=== PATIENT | female | born 1985 | race American Indian/Alaskan Native ===

== ENCOUNTER 2017-07-23 19:25 | Emergency (ER) | payer BC ==
[2017-07-23 19:25] VITALS: BMI 25.0
--- NOTE | 2017-07-23 19:42 | ED PDOC ---
Arrival/HPI - General Historian: Patient - General Time Seen by Provider: 07/23/17 19:39 - History of Present Illness Narrative History of Present Illness (Text): 07/23/17 19:39 32yo female with no PMhx who present with complaint of left sided upper tothache x 2hours. States she saw a Dentist before, after the tooth cracked and he wants to do root canal, but then the pain started tonight. States pain is thorbbing, 10/10. she did not take any medication for the pain. Denies fever, trauma, any other complaint. (u,Happiness A) Past Medical History - Provider Review Nursing Documentation Reviewed: Yes - Psychiatric Hx Depression: No Hx Emotional Abuse: No Hx Physical Abuse: No Hx Substance Use: No - Suicidal Assessment Feels Threatened In Home Enviroment: No Family/Social History - Physician Review Nursing Documentation Reviewed: Yes Family/Social History: Unknown Family HX Hx Alcohol Use: No Hx Substance Use: No Hx Substance Use Treatment: No Allergies/Home Meds Allergies/Adverse Reactions: Allergies No Known Allergies Allergy (Verified 01/21/12 09:34) Review of Systems - Physician Review All systems were reviewed & negative as marked: Yes - Review of Systems Constitutional: Normal Eyes: Normal ENT: Other (toothache) Respiratory: Normal Cardiovascular: Normal Gastrointestinal: Normal Genitourinary Female: Normal Musculoskeletal: Normal Skin: Normal Neurological: Normal Endocrine: Normal Hemo/Lymphatic: Normal Psychiatric: Normal Physical Exam Vital Signs Reviewed: Yes Temperature: Afebrile Blood Pressure: Normal Pulse: Regular Respiratory Rate: Normal Appearance: Positive for: Well-Appearing, Non-Toxic, Comfortable Pain Distress: None Mental Status: Positive for: Alert and Oriented X 3 - Systems Exam Head: Present: Atraumatic, Normocephalic Pupils: Present: PERRL Extroacular Muscles: Present: EOMI Conjunctiva: Present: Normal Mouth: Present: Moist Mucous Membranes. No: Normal Teeth (Left upper premolar cracked with mild gingival swelling) Neck: Present: Normal Range of Motion Respiratory/Chest: Present: Clear to Auscultation, Good Air Exchange. No: Respiratory Distress, Accessory Muscle Use Cardiovascular: Present: Regular Rate and Rhythm, Normal S1, S2. No: Murmurs Abdomen: Present: Normal Bowel Sounds. No: Tenderness, Distention, Peritoneal Signs Back: Present: Normal Inspection Upper Extremity: Present: Normal Inspection. No: Cyanosis, Edema Lower Extremity: Present: Normal Inspection. No: Edema Neurological: Present: GCS=15, CN II-XII Intact, Speech Normal Skin: Present: Warm, Dry, Normal Color. No: Rashes Psychiatric: Present: Alert, Oriented x 3, Normal Insight, Normal Concentration Vital Signs Pulse Resp BP Pulse Ox 07/23/17 20:15 62 17 135/70 100 07/23/17 19:38 66 16 140/73 100 - Medication Orders Current Medication Orders: Discontinued Medications Amoxicillin (Amoxil 500 Mg Cap) 500 mg PO STAT STA PRN Reason: Protocol Stop: 07/23/17 19:42 Last Admin: 07/23/17 20:12 Dose: 500 mg Tramadol HCl (Ultram) 50 mg PO STAT STA Stop: 07/23/17 19:42 Last Admin: 07/23/17 20:12 Dose: 50 mg MAR Pain Assessment Document 07/23/17 20:12 SF (Rec: 07/23/17 20:12 SF [email or web address] Pain Reassessment Is this a pain reassessment? Yes Sleep Is patient sleeping during reassessment? No Presence of Pain Presence of Pain Yes Disposition/Present on Arrival - Present on Arrival Any Indicators Present on Arrival: No History of DVT/PE: No History of Uncontrolled Diabetes: No Urinary Catheter: No History Surgical Site Infection Following: None - Disposition Have Diagnosis and Disposition been Completed?: Yes Disposition Time: 19:45 Patient Plan: Discharge - Disposition Diagnosis: Dental caries Disposition: HOME/ ROUTINE Condition: STABLE Discharge Instructions (ExitCare): Dental Pain (DC) Additional Instructions: Follow up with your dentist Return to ED for any new or worsening symptoms Prescriptions: Amoxicillin 500 mg PO TID #21 tablet Ibuprofen [Motrin Tab] 600 mg PO Q6 #20 tab traMADol [Ultram] 50 mg PO TID #9 tab Referrals: PCP,NO [Primary Care Provider] - Follow up with primary Forms: [employer] (Welsh)
[2017-07-23 19:49] VITALS: O2SAT 100
[2017-07-23 20:15] VITALS: BP 135/70; PULSE 62; RESP 17
== END 2017-07-23 20:14 | disposition home or self-care (01) ==
LOC: ED 19:25
DX: K02.9 Dental caries, unspecified (principal)